=== PATIENT | female | born 1995 | race Two or more races ===

== ENCOUNTER 2017-02-11 18:04 | Observation (INO) | payer BC ==
[~2017-02-11] VITALS: Ht 167.6 cm; Wt 64.9 kg
[2017-02-11] MEDS ORDERED: ONDANSETRON PF 4 MG/2 ML VIAL. IV PRN (18:45)
[2017-02-11 19:00] VITALS: BP 131/92
[2017-02-11] MEDS: PANTOPRAZOLE IV PUSH 40 MG VIAL. IVP SCH (19:32)
[2017-02-11] MEDS: POTASSIUM CL 20MEQ D5-0.45NACL 1,000 ML IV SCH (19:32)
[2017-02-11] MEDS: fentaNYL PF VIAL 100 MCG/2 ML VIAL IV PRN (19:33)
[2017-02-11 19:35] LABS: BASO % 0 % (0-3); EOS % 0 % (0-3); HEMATOCRIT 46.5 % (36.0-47.0); HEMOGLOBIN 15.9 g/dL (12.0-15.5); LYMPH # 1.3 x10^3/uL (1.0-4.8); LYMPH % 9 % (24-48); MEAN CORPUSCULAR HEMOGLOBIN 29 pg (25-35); MEAN CORPUSCULAR HGB CONC 34 g/dL (31-37); MEAN CORPUSCULAR VOLUME 84 fL (79-100); MONO % 3 % (0-9); NEUT % 88 % (31-73); PLATELET COUNT 388 x10^3/uL (140-400); RED BLOOD COUNT 5.56 x10^6/uL (3.50-5.40); RED CELL DISTRIBUTION WIDTH 12.5 % (11.5-14.5); WHITE BLOOD COUNT 13.6 x10^3/uL (4.0-11.0)
[2017-02-11 19:50] LABS: ALBUMIN 3.4 g/dL (3.4-5.0); ALBUMIN/GLOBULIN RATIO 0.9 (1.0-1.7); CALCIUM 8.9 mg/dL (8.5-10.1); CREATININE 0.5 mg/dL (0.6-1.0); GFR 152.9; POTASSIUM 3.6 mmol/L (3.5-5.1); TOTAL BILIRUBIN 0.4 mg/dL (0.2-1.0); TOTAL PROTEIN 7.3 g/dL (6.4-8.2)
[2017-02-11 20:14] LABS: % BASOS 1 % (0-3); PLT ESTIMATE ADEQUATE (ADEQUATE)
[2017-02-11] MEDS ORDERED: TRAZ50TA15 PO (21:24)
[2017-02-11] MEDS ORDERED: TOPI-24 PO (21:24)
[2017-02-11] MEDS ORDERED: ELET20TA PO (21:24)
[2017-02-11] MEDS ORDERED: CYCL10TA2 PO (21:24)
[2017-02-11 23:00] VITALS: BP 138/90
[2017-02-12] MEDS: POTASSIUM CL 20MEQ D5-0.45NACL 1,000 ML IV SCH ×3 (02:44→18:36)
[2017-02-12 03:03] VITALS: BP 133/88
[2017-02-12] MEDS ORDERED: PANTOPRAZOLE IV PUSH 40 MG VIAL. IVP SCH (07:30)
[2017-02-12 07:48] VITALS: BP 120/76
[2017-02-12] MEDS: PANTOPRAZOLE IV PUSH 40 MG VIAL. IVP SCH (07:49)
[2017-02-12] MEDS: fentaNYL PF VIAL 100 MCG/2 ML VIAL IV PRN (07:50)
--- NOTE | 2017-02-12 09:15 | PDOC ---
OBJECTIVE Vital Signs Vital Signs Date Time Temp Pulse Resp B/P Pulse Ox O2 Delivery O2 Flow Rate FiO2 02/12/17 07:50 20 97 Room Air 02/12/17 03:03 97.9 88 18 133/88 97 Room Air 97.9 02/11/17 23:00 98.6 89 20 138/90 98 Room Air 98.6 02/11/17 20:03 14 98 Room Air 02/11/17 19:45 Room Air 02/11/17 19:33 16 Room Air 02/11/17 19:00 98.1 91 20 131/92 98 Room Air 98.1 I & O Intake and Output 02/12/17 07:00 Intake Total 1150 ml Balance 1150 ml Intake Oral 150 ml IV Total 1000 ml # Voids 1 ASSESSMENT/PLAN Assessment/Plan 189076 H&P dictated Problems: COMMENT Lab Laboratory Tests Test 02/11/17 19:20 White Blood Count 13.6x10^3/uL (4.0-11.0) Red Blood Count 5.56x10^6/uL (3.50-5.40) Hemoglobin 15.9g/dL (12.0-15.5) Hematocrit 46.5% (36.0-47.0) Mean Corpuscular Volume 84fL (79-100) Mean Corpuscular Hemoglobin 29pg (25-35) Mean Corpuscular Hemoglobin Concent 34g/dL (31-37) Red Cell Distribution Width 12.5% (11.5-14.5) Platelet Count 388x10^3/uL (140-400) Neutrophils (%) (Auto) 88% (31-73) Lymphocytes (%) (Auto) 9% (24-48) Monocytes (%) (Auto) 3% (0-9) Eosinophils (%) (Auto) 0% (0-3) Basophils (%) (Auto) 0% (0-3) Neutrophils # (Auto) 11.9x10^3uL (1.8-7.7) Lymphocytes # (Auto) 1.3x10^3/uL (1.0-4.8) Monocytes # (Auto) 0.4x10^3/uL (0.0-1.1) Eosinophils # (Auto) 0.0x10^3/uL (0.0-0.7) Basophils # (Auto) 0.0x10^3/uL (0.0-0.2) Segmented Neutrophils % 84% (35-66) Band Neutrophils % 1% (0-9) Lymphocytes % 11% (24-48) Atypical Lymphocytes % (Manual) 2% (0-0) Monocytes % 1% (0-10) Basophils % 1% (0-3) Platelet Estimate Adequate (ADEQUATE) Sodium Level 136mmol/L (136-145) Potassium Level 3.6mmol/L (3.5-5.1) Chloride Level 100mmol/L (98-107) Carbon Dioxide Level 20mmol/L (21-32) Anion Gap 16 (6-14) Blood Urea Nitrogen 6mg/dL (7-20) Creatinine 0.5mg/dL (0.6-1.0) Estimated GFR (Cockcroft-Gault) 152.9 BUN/Creatinine Ratio 12 (6-20) Glucose Level 98mg/dL (70-99) Calcium Level 8.9mg/dL (8.5-10.1) Total Bilirubin 0.4mg/dL (0.2-1.0) Aspartate Amino Transf (AST/SGOT) 14U/L (15-37) Alanine Aminotransferase (ALT/SGPT) 29U/L (14-59) Alkaline Phosphatase 74U/L (46-116) Total Protein 7.3g/dL (6.4-8.2) Albumin 3.4g/dL (3.4-5.0) Albumin/Globulin Ratio 0.9 (1.0-1.7) Amylase Level 41U/L (25-115) JOSE GREGORIO MD February 12, 2017 09:15
--- NOTE | 2017-02-12 10:25 | RAD ---
Indication:Right upper quadrant pain and vomiting Grayscale images of the abdomen were obtained. Comparison none Liver:A focal mass lesion is not seen and the visualized liver. Gallbladder:Normal. The common bile duct diameter of approximately 3 mm is also normal Spleen:Normal Pancreas:As visualized normal Kidneys:Normal Abdominal aorta and IVC:Normal Ancillary findings:None Impression:Normal study
[2017-02-12 10:30] VITALS: BP 123/83
--- NOTE | 2017-02-12 10:54 | PREOP HP ---
DATE OF SERVICE: HISTORY OF PRESENT ILLNESS: The patient is a 21-year-old, she is in room 521, who presented to the office yesterday due to severe abdominal pain with nausea and vomiting. Symptoms started after a few hours after she had ate a biscuit the night before and worsened overnight. She was seen in the office in the morning, was given GI cocktail, she vomited that. She then was given Phenergan IM and a prescription for PPI Dexilant and was encouraged to stay on a bland diet and call if not better. Later on that afternoon, she called and she is still having vomiting and her abdominal pain was increasing in severity. She did not have any diarrhea. Did not have fever or chills. She was getting dehydrated and dizzy. She was instructed to come to the hospital for short stay for observation and monitoring. PAST MEDICAL HISTORY: Significant for tonsillectomy after peritonsillar abscess in the past, history of migraine headaches. She does take control pills. FAMILY HISTORY: Positive for coronary artery disease and cardiomyopathy in her father. SOCIAL HISTORY: She does not smoke or drink alcohol. 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 She denies use of any drugs. REVIEW OF SYSTEMS: CONSTITUTIONAL: There is no fever or chills. Denies weight loss. EYES: Denies visual problems. HEENT: Denies sore throat or congestion. PULMONARY: Denies cough, shortness of breath or wheezing. CARDIAC: Denies chest pain. GASTROINTESTINAL: She does have abdominal pain mostly in the epigastric, upper abdomen and right upper quadrant area associated with nausea, vomiting, but no diarrhea, no melena, no hematochezia, no hemoptysis or hematemesis. GENITOURINARY: She denies urinary symptoms or dysuria. NEUROLOGIC: Denies headache at present time, but has had history of migraines in the past. PHYSICAL EXAMINATION: GENERAL: She is alert and oriented, seems to be in mild distress due to the discomfort. HEENT: Her tympanic membranes clear. Pharynx clear. Mucous membranes dry. NECK: Supple. LUNGS: Fairly clear to auscultation anteriorly and posteriorly. HEART: Regular rate and rhythm. ABDOMEN: Soft. She did have tenderness in the epigastric right upper quadrant and mid abdominal area, voluntary guarding, no rebound. Positive bowel sounds. EXTREMITIES: No edema, clubbing or cyanosis. NEUROLOGICAL: Without any deficit. IMPRESSION AND PLAN: 1. Acute gastritis. The patient was admitted, started on antiemetic pain control, PPI and will keep her on clear liquid diet. We will obtain an abdominal ultrasound to rule out gallbladder disease or any other etiologies for her severe pain and discomfort. 2. History of headaches. 3. History of tonsillectomy. The patient was admitted for 24-hour observation. If her symptoms improve, lab is normal including ____ and if her abdominal ultrasound is negative, we will advance diet later today and hopefully she can be discharged home unless other etiology was found. JOSE GREGORIO MD DR: RAMA/marcy JOB#: [id number] / [id number]
[2017-02-12 14:30] VITALS: BP 111/69
[2017-02-12] MEDS ORDERED: DEXL60CA PO (16:45)
--- NOTE | 2017-02-12 16:49 | PDOC3 ---
Discharge Summary* Date of Admission: February 11, 2017 Date of Discharge: February 12, 2017 Final Diagnosis 1. Acute gastritis. 2-abdominal pain severe 3- N/V 4. History of headaches. Procedures abd US Brief Hospital Course Ms. Cantu is a 21 old [sex] who presented with [ ] Disposition/Orders: D/C to Home CONDITION AT DISCHARGE: Improved Diet: other ([place] and advance as tolerated) Scheduled Topiramate (Topiramate) 1 TAB PO HS (Reported) Trazodone Hcl (Trazodone Hcl) 1 TAB PO QHS (Reported) Scheduled PRN Cyclobenzaprine Hcl (Cyclobenzaprine Hcl) 10 MG PO TID PRN PRN MUSCLE SPASMS ( Reported) Eletriptan Hbr (Relpax) 20 MG PO PRN HEADACHE (Reported) FOLLOW UP APPOINTMENT: Dr. Gregorio 1-2 weeks Time Spent Total time spent with patient [] minutes for coordination of care, counseling, and education. JOSE GREGORIO MD February 12, 2017 16:49
== END 2017-02-12 18:40 | disposition home or self-care (01) ==
LOC: 5 NORTH 18:14
PROVIDERS: ADMIT Internal Medicine; ATTEND Internal Medicine
DX: K29.00 Acute gastritis without bleeding (principal); R51 Headache; E86.0 Dehydration
CPT/HCPCS: 36415; 76700; 80053; 82150; 85007; 85027; C9113; G0378; G0379; J2405; J3010; 96361; 96374; 96375; 96376

== ENCOUNTER → 2017-03-12 | Day surgery (SDC) | payer BC ==
[~2017-03-12] MED LIST: CYCL10TA2 PO; DEXL60CA PO; ELET20TA PO; ETON1VAG VG; IV RINGERS,LACTATED 1000ML 1,000 ML IV SCH; LIDOCAINE 2% PF Vial for OR 5 ML VIAL. ONE; PROPOFOL 40 ML IV ONE; TOPI-24 PO; TRAZ50TA15 PO
--- NOTE | 2017-03-12 10:10 | PDOC1 ---
HISTORY & PHYSICAL H&P Angelica Cantu [id number] 1995 03/05/2017 04:00 PM /3 [facility], [facility] OUR PATIENTS COME FIRST [address] [place] [id number] Ph. [phone] Patient: Angelica Cantu Date of : 1995 Date: 03/05/2017 4:00 PM Historian: self Visit Type: Consult This 21 year old female presents for Acute Gastritis and Abdominal pain. History of Present Illness: 1. Acute Gastritis Had been diagnosed with acute gastroenteritis and treated with 24 hr hospitalization and IV fluids. Had negative abdominal sonogram and basic lab work. Patient was treated with Dexilant with some improvement. No endoscopy done. Patient again had significant abdominal pain and vomiting and had been started with Dexilant again. Here for further evaluation of her abdominal pain and vomiting. 2. Abdominal pain Duration is 2 to 3 weeks. Location is epigastric, midline. The patient describes it as bloating, sharp and stabbing. Context: no pattern noted. Denies aggravating factors. Relieving factors include proton pump inhibitors. INTAKE COMMENTS: Intake Comments: Nurses Notes: Pt is here today with complaints of acute gastritis, Pt PCP referred her to Dr. Esquivel to find out why the pt is having this recurrent issue. Medications (Active): Started Medication Directions Instruction Stopped cyclobenzaprine 5 mg tablet take 1 tablet by oral route 3 times every day NuvaRing 0.12 mg -0.015 mg/24 hr vaginal insert 1 vaginal ring by vaginal route every month leave in place for 3 weeks, remove for 1 week topiramate 15 mg sprinkle capsule take 1 capsule by oral route 2 times every day in the morning and evening trazodone 50 mg tablet take 0.5 Tablet by oral route every bedtime after meals Allergies: Ingredient Reaction Medication Name Comment POTASSIUM CLAVULANATE GI Bleeding AUGMENTIN AMOXICILLIN TRIHYDRATE GI Bleeding AUGMENTIN REVIEW OF SYSTEMS System Neg/Pos Details Constitutional Negative Chills, fever, malaise and weight loss. ENMT Negative Sore throat. Eyes Negative Double vision. Respiratory Negative Dyspnea and wheezing. Cardio Negative Chest pain and irregular heartbeat/palpitations. GI Positive See HPI. GI Negative See HPI. Negative Dysuria and hematuria. Endocrine Negative Cold intolerance and heat intolerance. Psych Negative Anxiety. Integumentary Negative Hives and rash. MS Negative Joint pain. Kenji/Lymph Negative Easy bleeding and easy bruising. Allergic/Immuno Negative Food allergies. VITAL SIGNS Time BP mm/Hg Pulse /min Resp /min Temp F Ht ft Ht in Ht cm Wt lb Wt kg BMI kg/ m2 BSA m2 O2 Sat% 3:58 PM 118/66 113 16 98.0 5.0 2.00 157.48 140.00 63.503 25.61 99 Time Measured by 3:58 PM Celine Hammonds PHYSICAL EXAM: Exam Findings Details Constitutional Normal Well developed. Eyes Normal Conjunctiva - Right: Normal, Left: Normal. Sclera - Right: Normal, Left: Normal. Nasopharynx Normal Lips/teeth/gums - Normal. Neck Exam Normal Inspection - Normal. Thyroid gland - Normal. Respiratory Normal Inspection - Normal. Auscultation - Normal. Cardiovascular Normal Regular rate and rhythm. No murmurs, gallops, or rubs. Vascular Normal Pulses - Carotids: Normal, Femoral: Normal, Dorsalis pedis: Normal. Abdomen Normal Inspection - Normal. Anterior palpation - No guarding. No abdominal tenderness. No hepatic enlargement. No splenic enlargement. No hernia. No Ascites. Skin Normal Inspection - Normal. Extremity Normal No edema. Psychiatric Normal Oriented to time, place, person, and situation. Appropriate mood and effect. Assessment/Plan # Detail Type Description 1. Assessment Pain of upper abdomen (R10.10). Patient Plan schedule EGD at [facility] Plan Orders Further diagnostic evaluations ordered today include(s) EGD to be performed today. She is to schedule a follow-up visit with Pradeep Esquivel MD upon completion of work-up Electronically signed by: Pradeep Esquivel MD 03/05/2017 04:16 PM Document generated by: Pradeep Esquivel 03/05/2017 04:16 PM Salma Tang MD, Family Practice; Karl He MD Internal Medicine; Yelena Hogan MD, Internal Medicine; Mariana Esquivel MD Internal Medicine; Pradeep Esquivel MD, Gastroenterology; Zak Mathias MD, Rheumatology, S. Brodie Wallace, Physical Medicine/Rehab Carlos Centeno APRN ------ 03/12/17 Patient seen and examined. No change in H&P. PRADEEP ESQUIVEL MD March 12, 2017 10:10
--- NOTE | 2017-03-12 10:42 | PDOC4 ---
GI OP Report - Dr. Hargrove Date/Time DATE: 03/12/17 TIME: 10:36 Attending Physician Pradeep Hargrove MD Referring Physician Indications Upper abdominal pain Pre-Op See the Anesthesia note for documentation of the administered medications Procedures Upper GI endoscopy+bx Findings - Normal esophagus. - Normal stomach. Biopsied. - Normal examined duodenum. Plan - Discharge patient to home. - Patient has a contact number available for emergencies. The signs and symptoms of potential delayed complications were discussed with the patient. Return to normal activities tomorrow. Written discharge instructions were provided to the patient. - Resume regular diet. - Continue present medications. - Return to my office as needed. - Await pathology results. PRADEEP HARGROVE MD March 12, 2017 10:42
[2017-03-12 11:00] VITALS: BP 120/81
--- NOTE | 2017-03-14 15:46 | PATHOLOGY ---
PATHOLOGY REPORT * * * * * * * * FINAL DIAGNOSIS: Gastric biopsy, antrum: - Chronic gastritis, mild. COMMENT: Sections of the gastric biopsy reveal segments of gastric body and gastric antral mucosa. The gastric body mucosa shows focal superficial congestion and slight chronic inflammation. The segment of gastric antral mucosa shows mild chronic inflammation. An immunoperoxidase stain for Helicobacter is obtained. No Helicobacter organisms are identified. There is no evidence of malignancy. REPORT ELECTRONICALLY SIGNED BY: Rober Hines M.D. DATE/TIME: 03/14/2017 15:45 * * * * * * * * GROSS PATHOLOGY: Received in formalin labeled "Angelica Cantu, antrum," are two segments of mcnair soft tissue measuring 0.7 x 0.5 x 0.1 cm in aggregate dimensions and ranging from 0.3 to 0.7 cm in maximum dimension. The specimen is submitted entirely in cassette A1. (CAA; 03/13/2017) INITIAL CPT CODE(S): A; 56612, 54738 Professional services performed [place] [facility] [place] [address] Technical services performed by [facility] at [address] [place] [address] [address], [place] [address]. SPECIMEN(S) RECEIVED: A.Antrum biopsy CLINICAL HISTORY: Abdominal pain PATIENT: ANGELICA CANTU /AGE: 6 1995 (Age: 21) PATIENT #: [id number] ALT CASE #: SPECIMEN COLLECTION DATE: 03/12/2017 SPECIMEN RECEIVED DATE: 03/12/2017 [facility] - [address] [place] [address] - PHONE: [phone] * * * END OF REPORT * * *
== END | disposition home or self-care (01) ==
LOC: ENDOS 09:22
PROVIDERS: ATTEND Internal Medicine Gastroenterology
DX: K29.60 Other gastritis without bleeding (principal); Z86.69 Personal history of other diseases of the nervous system and sense organs; Z88.0 Allergy status to penicillin; Z88.1 Allergy status to other antibiotic agents
CPT/HCPCS: 43239; 88305; 88342; J2704